=== PATIENT | male | born 1970 | race Caucasian/White ===

== ENCOUNTER 2025-03-15 09:18 | Inpatient (IN) | payer OTHER ==
[~2025-03-15] VITALS: Ht 180.3 cm; Wt 68.9 kg
[2025-03-15] MEDS ORDERED: KETOROLAC TROMETHAMINE 15 MG/ML VIAL IV ONE (10:00)
[2025-03-15] MEDS ORDERED: ONDANSETRON HCL/PF 4 MG/2 ML VIAL ONE (10:03)
[2025-03-15] MEDS ORDERED: MORPHINE SULFATE INJ 4 MG/ML DISP.SYRIN ONE (10:03)
[2025-03-15] MEDS: IV NS 0.9% 1,000 ML BAG IV ONE (10:11)
[2025-03-15] MEDS: MORPHINE SULFATE INJ 2 MG/ML DISP.SYRIN IV ONE (10:11)
[2025-03-15] MEDS: ONDANSETRON HCL/PF 4 MG/2 ML VIAL IV ONE (10:12)
[2025-03-15 10:20] LABS: PLATELET COUNT (AUTO) 142 K/uL (150-450); RED BLOOD CELL COUNT(AUTO) 5.62 MIL/uL (4.5-6.0); RED CELL DISTRIBUTION WIDTH 13.7 % (11.5-15.0); WHITE BLOOD COUNT (AUTO) 12.3 K/uL (4.3-11.0)
[2025-03-15] MEDS ORDERED: IOHEXOL-300 100 ML VIAL IV ONE (10:26)
[2025-03-15] MEDS ORDERED: CT SWABBABLE VALVE TRANS SET 1 EA INFUS.SET MC ONE (10:26)
[2025-03-15] MEDS ORDERED: IV NS 0.9% 250 ML IV ONE (10:26)
[2025-03-15 10:29] LABS: CALCIUM, SERUM 8.7 mg/dL (8.5-10.1); CREATININE 1.4 mg/dL (0.6-1.3); SODIUM SERUM 133.0 mmol/L (136-145); UREA NITROGEN, BLOOD 21.0 mg/dL (7-18)
[2025-03-15 10:34] LABS: ASPARTATE AMINOTRANSFERASE 39.0 U/L (15-37); INR 1.26 (0.91-1.10); TOTAL PROTEIN, SERUM 7.0 g/dL (6.4-8.2)
[2025-03-15 10:37] LABS: LACTIC ACID 1.9 mmol/L (0.4-2.0)
[2025-03-15] MEDS ORDERED: LEVO125T PO (10:49)
[2025-03-15] MEDS ORDERED: BECL10.62 INH (10:49)
[2025-03-15] MEDS ORDERED: HYDR5TAB PO (10:49)
[2025-03-15] MEDS ORDERED: FLUD0.1T PO (10:49)
[2025-03-15] MEDS ORDERED: CLINDAMYCIN 600 MG in IV D5W 100 ML IV ONE (12:00)
[2025-03-15] MEDS: CLINDAMYCIN 600 MG in IV NS 0.9% 46 ML IV ONE (13:25)
[2025-03-15] MEDS: IV LR 1000 ML 1,000 ML BAG IV ONE (15:45)
[2025-03-15] MEDS ORDERED: MAG HYDROX/AL HYDROX/SIMETH 30 ML UDC PO PRN (16:00)
[2025-03-15] MEDS ORDERED: MAGNESIUM HYDROXIDE 30 ML UDC PO PRN (16:00)
[2025-03-15] MEDS ORDERED: ACETAMINOPHEN 325 MG TABLET PO PRN (16:00)
[2025-03-15] MEDS ORDERED: Z GUARD REMEDY 4 OZ OINT TP PRN (16:00)
[2025-03-15] MEDS ORDERED: PHENOL/SODIUM PHENOLATE 1 LOZ LOZENGE PO PRN (16:00)
[2025-03-15] MEDS ORDERED: HYDROCODONE/APAP 5/325MG TABLET PO PRN (16:00)
[2025-03-15] MEDS ORDERED: ONDANSETRON HCL/PF 4 MG/2 ML VIAL IVP PRN (16:00)
[2025-03-15] MEDS ORDERED: BUDESONIDE RESPULE INH 0.5 MG/2 ML AMPUL.NEB HHN SCH (17:00)
[2025-03-15] MEDS: HYDROCORTISONE SOD SUCCINATE 100 MG/2 ML VIAL IV SCH (17:34)
[2025-03-15] MEDS: IV NS 0.9% 1,000 ML IV PRN (18:15)
[2025-03-15 20:00] VITALS: BP 111/72; TEMP 98.4; O2SAT 95
[2025-03-15] MEDS: CLINDAMYCIN 900 MG in IV D5W 50 ML IV SCH (20:58)
[2025-03-15] MEDS ORDERED: CLINDAMYCIN IV RTU IN D5W 900 MG/50 ML PIGGYBACK IV SCH (21:00)
[2025-03-16] VITALS: BP 113/58; TEMP 98.2; O2SAT 95
[2025-03-16 04:00] VITALS: BP 105/55; TEMP 98; O2SAT 96
[2025-03-16 05:52] LABS: PLATELET COUNT (AUTO) 117 K/uL (150-450); RED BLOOD CELL COUNT(AUTO) 4.91 MIL/uL (4.5-6.0); RED CELL DISTRIBUTION WIDTH 14.1 % (11.5-15.0); WHITE BLOOD COUNT (AUTO) 14.7 K/uL (4.3-11.0)
[2025-03-16 06:04] LABS: CALCIUM, SERUM 8.1 mg/dL (8.5-10.1); CREATININE 1.1 mg/dL (0.6-1.3); PHOSPHORUS 3.5 mg/dL (2.5-4.9); SODIUM SERUM 138.0 mmol/L (136-145); UREA NITROGEN, BLOOD 17.0 mg/dL (7-18)
[2025-03-16 07:30] VITALS: BP 135/91; TEMP 97.9; O2SAT 97
[2025-03-16 08:00] VITALS: BP 101/66; TEMP 97.9; O2SAT 96
[2025-03-16] MEDS: FLUDROCORTISONE 0.1 MG TABLET PO SCH (08:47)
[2025-03-16] MEDS: LEVOTHYROXINE SODIUM 125 MCG TABLET PO SCH (08:47)
[2025-03-16] MEDS ORDERED: DEXTROSE 50%-WATER 50 ML DISP.SYRIN IV PRN (09:30)
[2025-03-16] MEDS ORDERED: INSULIN REGULAR, HUMAN 100 UNIT/ML 3 ML VIAL SQ PRN (09:30)
[2025-03-16] MEDS ORDERED: *INSULIN REGULAR(HUMULIN R)HUM 100 UNIT/ML VIAL SQ PRN (09:30)
[2025-03-16] MEDS ORDERED: PRED50TA PO (11:59)
[2025-03-16] MEDS ORDERED: CLIN300C12 PO (11:59)
[2025-03-16] MEDS: BLOOD SUGAR DIAGNOSTIC 1 EACH STRIP VI SCH (13:19)
== END 2025-03-16 16:57 | disposition home or self-care (01) | DRG 153 ==
LOC: ER 09:32 → MEDSG1 16:46
PROVIDERS: ADMIT Internal Medicine; ATTEND Internal Medicine
DX: J02.8 Acute pharyngitis due to other specified organisms (principal); E27.1 Primary adrenocortical insufficiency; E10.A Type 1 diabetes mellitus, presymptomatic; J45.909 Unspecified asthma, uncomplicated; Z79.890 Hormone replacement therapy; Z79.899 Other long term (current) drug therapy; M89.8X9 Other specified disorders of bone, unspecified site; E03.9 Hypothyroidism, unspecified; R13.10 Dysphagia, unspecified; J32.8 Other chronic sinusitis; B96.89 Other specified bacterial agents as the cause of diseases classified elsewhere; R59.1 Generalized enlarged lymph nodes
CPT/HCPCS: 36415; 70491-TC; 80048-TC; 80076-TC; 82962-TC; 83605-TC; 83735-TC; 84100-TC; 85025-TC; 85730-TC; 86403-TC; 87040-TC; 87070-TC; 92526; 92611; A4223; G0378; J1720; J1815; J2270; J2405; J3490; J7030; J7050; J7060; J7120; Q9967